=== PATIENT | male | born 1990 | race Caucasian/White ===

== ENCOUNTER 2016-10-12 10:51 | Emergency (ER) | payer OTHER, BC ==
[~2016-10-12] VITALS: Ht 188 cm; Wt 94.3 kg
[~2016-10-12 10:51] MED LIST: CLONIDINE HCL0.1 MG PO; FLAGYL500 MG PO; FLORASTOR250 MG PO; IMITREX100 MG PO; NOHOMEMEDS; OMEPRAZOLE40 M1 PO; REMERON15 M2 PO; TRAZODONE HCL50 MG PO; ZOFRAN ODT4 MG PO; ZOFRAN ODT8 MG PO
[2016-10-12 11:27] LABS: HEMATOCRIT 50.7 % (38.0-50.0); MCH 29.4 PG (29.0-34.0); MCHC 33.5 G/DL (30.0-36.0); MCV 87.7 FL (86-99); MEAN PLAT.VOLUME 10.3 uM^3 (9.0-12.4); PLATELET COUNT 387 K/uL (156-360); RBC DIS.WIDTH-CV 12.5 % (11.8-14.6); RED BLOOD COUNT 5.78 M/uL (4.00-5.50); WHITE BLOOD COUNT 18.1 K/uL (4.1-10.2)
[2016-10-12 11:35] LABS: CHLORIDE 103 mEq/L (99-109); POTASSIUM 3.3 mEq/L (3.7-5.4); SODIUM 139 mEq/L (136-147)
[2016-10-12 11:37] LABS: GLUCOSE 133 mg/dL (70-99)
[2016-10-12 11:38] LABS: ANION GAP 15 MEQ/L (2-14)
[2016-10-12 11:41] LABS: POINT-OF-CARE METER ID UU13113702
[2016-10-12 11:41] LABS: GFR ESTIMATE (CALCULATED) > 59 mL/min/; UREA NITROGEN (BUN) 10 mg/dL (9-23)
[2016-10-12 12:26] LABS: TOTAL BILIRUBIN 1.1 mg/dL (0.0-1.0)
[2016-10-12 12:27] LABS: ALKALINE PHOSPHATASE 75 IU/L (3-129)
[2016-10-12 12:30] LABS: DIRECT BILIRUBIN 0.4 mg/dL (0.0-0.3)
[2016-10-12 13:32] LABS: ADD MIUA? YES; BILIRUBIN NEGATIVE; BLOOD NEGATIVE; COLOR YELLOW ((YELLOW)); GLUCOSE (STRIP) NEGATIVE; KETONES 80; LEUKOCYTES NEGATIVE; NITRITE NEGATIVE; PROTEIN (STRIP) 30; SPECIFIC GRAVITY 1.024 (1.000-1.030); UROBILINOGEN 0.2 MG/DL (0.2-1.0)
[2016-10-12 13:35] LABS: BACTERIA RARE /HPF; EPITHELIAL CELLS RARE /HPF; MUCUS 1+ /LPF; RED BLOOD CELLS 0-5 /HPF (0-5); UCUL ADDED? NO; WHITE BLOOD CELLS 0-5 /HPF (0-5)
[2016-10-12] MEDS ORDERED: ZOFRAN4 MG PO (13:55)
[2016-10-12 14:37] VITALS: BP 143/88
== END 2016-10-12 14:40 | disposition home or self-care (01) ==
LOC: EME 10:51
PROVIDERS: Emergency Medicine
DX: R11.10 Vomiting, unspecified (principal); R19.7 Diarrhea, unspecified; K21.9 Gastro-esophageal reflux disease without esophagitis; F17.200 Nicotine dependence, unspecified, uncomplicated; F12.90 Cannabis use, unspecified, uncomplicated; Z88.1 Allergy status to other antibiotic agents
CPT/HCPCS: 80048; 80076; 81003; 82948; 85027; 99281; 99285; C9113; J2405; J2765; J7030

== ENCOUNTER 2017-08-06 06:23 | Emergency (ER) | payer OTHER ==
[~2017-08-06] VITALS: Ht 190.5 cm; Wt 89.4 kg
[~2017-08-06 06:23] MED LIST changes: +ZOFRAN4 MG PO
[2017-08-06 06:58] LABS: BASOPHIL (%) 0.5 % (0-1); BASOPHIL COUNT 0.1 K/uL (0-0.1); EOSINOPHIL (%) 2.7 % (0-5); EOSINOPHIL COUNT 0.3 K/uL (0-0.3); HEMATOCRIT 51.3 % (38.0-50.0); HEMOGLOBIN 17.6 G/DL (12.5-16.6); IMMATURE GRANULOCYTE (%) 0.5 % (0.0-0.7); LYMPHOCYTE (%) 21.5 % (15-42); LYMPHOCYTE COUNT 2.5 K/uL (1.0-2.8); MCH 29.3 PG (29.0-34.0); MCHC 34.3 G/DL (30.0-36.0); MCV 85.5 FL (86-99); MONOCYTE (%) 8.3 % (3-12); NEUTROPHIL (%) 66.5 % (45-76); NEUTROPHIL COUNT 7.7 K/uL (1.8-6.4); PLATELET COUNT 333 K/uL (156-360); RBC DIS.WIDTH-CV 13.1 % (11.8-14.6); RBC DIS.WIDTH-SD 40.6 % (39-53); WHITE BLOOD COUNT 11.5 K/uL (4.1-10.2)
[2017-08-06 07:20] LABS: ALBUMIN 5.1 G/DL (3.2-4.8); ALKALINE PHOSPHATASE 67 IU/L (3-129); ALT (GPT) 17 IU/L (3-49); AST (GOT) 16 IU/L (2-34); CHLORIDE 106 MEQ/L (99-109); CREATININE 0.7 MG/DL (0.6-1.3); GFR ESTIMATE (CALCULATED) > 59 mL/min/ (58.99-99999); GLUCOSE 100 mg/dL (70-99); POTASSIUM 3.9 MEQ/L (3.7-5.4); SERUM ETHYL ALCOHOL 117 mg/dL; SODIUM 141 MEQ/L (136-147); TOTAL BILIRUBIN 0.7 MG/DL (0.0-1.0); TOTAL PROTEIN 7.8 G/DL (6.4-8.3); UREA NITROGEN (BUN) 10 mg/dL (9-23)
[2017-08-06 07:26] LABS: ACETAMINOPHEN (TYLENOL) < 10 MCG/ML (10-30); SALICYLATE < 3.0 MG/DL (15-30)
[2017-08-06] MEDS ORDERED: CLONIDINE HCL0.1 MG PO (09:52)
[2017-08-06] MEDS ORDERED: ZOFRAN ODT4 MG PO (09:52)
[2017-08-06 10:08] VITALS: BP 153/101
== END 2017-08-06 10:10 | disposition home or self-care (01) ==
LOC: EME 06:23
PROVIDERS: Emergency Medicine
DX: F12.988 Cannabis use, unspecified with other cannabis-induced disorder (principal); R11.2 Nausea with vomiting, unspecified; F11.10 Opioid abuse, uncomplicated; F32.9 Major depressive disorder, single episode, unspecified; F41.9 Anxiety disorder, unspecified; J45.909 Unspecified asthma, uncomplicated; K21.9 Gastro-esophageal reflux disease without esophagitis; F17.200 Nicotine dependence, unspecified, uncomplicated; Z88.0 Allergy status to penicillin; Z88.8 Allergy status to other drugs, medicaments and biological substances
CPT/HCPCS: 80053; 85025; 90839; 99281; 99285; G0480; J1630; J7040